=== PATIENT | female | born 1950 ===

== ENCOUNTER 2020-03-10 08:03 | Outpatient (CLI) | payer MEDICARE, OTHER, SELFPAY ==
[2020-03-12 12:16] LABS: SARS-CoV-2 RNA Undetected (Undetected); SARS-CoV-2 Specimen Source Nasopharynx
== END 2020-03-10 08:23 ==
PROVIDERS: Visit Provider Family Medicine
DX: Z11.59 Encounter for screening for other viral diseases (principal)
CPT/HCPCS: U0003